=== PATIENT | male | born 2005 | race Two or more races ===

== ENCOUNTER 2024-08-20 20:43 | Emergency (ER) | payer MEDICAID, OTHER ==
[~2024-08-20] VITALS: Ht 162.6 cm; Wt 63.5 kg
[2024-08-20 21:20] VITALS: BP 138/79; TEMP 98.9; O2SAT 99
== END 2024-08-20 23:29 | disposition home or self-care (01) ==
LOC: ER 20:48
DX: S63.696A Other sprain of right little finger, initial encounter (principal); X58.XXXA Exposure to other specified factors, initial encounter; Y93.66 Activity, soccer; Y92.89 Other specified places as the place of occurrence of the external cause; Y99.8 Other external cause status
CPT/HCPCS: 73130-TC